=== PATIENT | male | born 1995 | race Caucasian/White ===

== ENCOUNTER 2022-05-04 10:58 | Emergency (ER) | payer SELFPAY ==
[~2022-05-04] VITALS: Ht 172.7 cm; Wt 81.6 kg
[2022-05-04 11:11] VITALS: BP_SYST 121
[2022-05-04] MEDS ORDERED: BACITRACIN 1 GM OINT TP ONE (11:25)
[2022-05-04] MEDS ORDERED: BACITRACIN ZINC 15 GM TOPICAL OINTMENT TP ONE (11:30)
[2022-05-04 12:17] VITALS: BP_SYST 121
== END 2022-05-04 12:17 | disposition home or self-care (01) ==
LOC: SED 10:58
DX: Z48.02 Encounter for removal of sutures (principal)
CPT/HCPCS: 99282